=== PATIENT | male | born 1960 | race Caucasian/White ===

== ENCOUNTER 2017-07-09 14:44 | Day surgery (SDC) | payer OTHER ==
[~2017-07-09] VITALS: Ht 185.4 cm; Wt 108.9 kg
[~2017-07-09 14:44] MED LIST: ASPIR 8181 M1 PO; BENICAR20 MG PO; FISH OIL 1,0001 EAC7 PO; GREEN TEA1 CAPSULE PO
[2017-07-09 15:38] VITALS: BP 120/61
[2017-07-09] MEDS ORDERED: VITAMIN E200 UNI2 PO (15:52)
[2017-07-09 19:58] VITALS: BP 141/86
[2017-07-09 20:30] VITALS: BP 132/78
== END 2017-07-09 20:55 | disposition home or self-care (01) ==
LOC: SDC 14:44
DX: H33.022 Retinal detachment with multiple breaks, left eye (principal); I10 Essential (primary) hypertension; Z86.19 Personal history of other infectious and parasitic diseases; Z88.0 Allergy status to penicillin; Z82.41 Family history of sudden cardiac death; Z83.3 Family history of diabetes mellitus
CPT/HCPCS: 93005; J0690